=== PATIENT | male | born 1960 | race Caucasian/White ===

== ENCOUNTER 2017-02-09 09:56 | Emergency (ER) | payer OTHER ==
[~2017-02-09] VITALS: Ht 172.7 cm; Wt 74.8 kg
[2017-02-09] MEDS ORDERED: IBUP600T26 PO (11:14)
[2017-02-09 11:28] VITALS: BP 147/95
--- NOTE | 2017-02-09 11:29 | REP ---
RIGHT WRIST, FOUR VIEWS: HISTORY: Injury. There is no acute fracture or dislocation. The joint spaces are normal in appearance. IMPRESSION: There is no acute fracture or dislocation. Signed by Tyler Storey MD 02/09/2017 11:30 A
== END 2017-02-09 11:43 | disposition home or self-care (01) ==
LOC: M ED 10:46
DX: S63.501A Unspecified sprain of right wrist, initial encounter (principal); X50.0XXA Overexertion from strenuous movement or load, initial encounter; Y92.89 Other specified places as the place of occurrence of the external cause; Y93.89 Activity, other specified; Y99.0 Civilian activity done for income or pay

== ENCOUNTER 2018-02-27 20:52 | Emergency (ER) | payer OTHER ==
[2018-02-27] MEDS: NORCO 5/325MG TABLET (BULK FOR ED) PO (23:07)
== END 2018-02-27 23:25 | disposition home or self-care (01) ==
LOC: M ED 20:52
DX: S92.002A Unspecified fracture of left calcaneus, initial encounter for closed fracture (principal); W07.XXXA Fall from chair, initial encounter; Y92.098 Other place in other non-institutional residence as the place of occurrence of the external cause; F17.210 Nicotine dependence, cigarettes, uncomplicated
CPT/HCPCS: 73610